=== PATIENT | female | born 1955 ===

== ENCOUNTER 2021-04-16 15:19 | Inpatient (IN) | payer MEDICARE ==
--- NOTE | 2021-04-17 18:34 | Consultation ---
History of Present Illness - Reason for Consult Consult date: 04/17/21 Medical Management Requesting physician: SAÚL VILLALOBOS - History of Present Illness 72 YO Female with Vascular Dementia with Behavioral Disturbance, Cerebral Atherosclerosis, GERD, OA, LDD, Chronic Pain Syndrome, Depression, Hypothyroidism admitted to [facility] for psychiatric stabilization. Consult placed by Dr. Villalobos for medical management. Medications and Allergies Allergies Allergy/AdvReac Type Severity Reaction Status Date / Time cefuroxime Allergy Unknown Verified 04/17/21 17:24 Sulfa (Sulfonamide Allergy Unknown Unverified 04/16/21 15:21 Antibiotics) Home Medications Medication Instructions Recorded Confirmed Last Taken Type Escitalopram Oxalate [Lexapro] 20 mg PO DAILY 04/17/21 04/17/21 Unknown History Furosemide [Lasix] 20 mg PO QDAY 04/17/21 04/17/21 Unknown History LORazepam [Ativan] 1 mg PO BID PRN 04/17/21 04/17/21 Unknown History Levothyroxine Sodium [Synthroid] 137 mcg PO DAILY 04/17/21 04/17/21 Unknown History OLANzapine ZYDIS [ZyPREXA Zydis] 5 mg SL DAILY 04/17/21 04/17/21 Unknown History Oxymorphone HCl [Oxymorphone HCl 10 mg PO 4XD PRN MDD 4 X DAILY 04/17/21 04/17/21 Unknown History ER] cephALEXin [Keflex] 500 mg PO TID 04/17/21 04/17/21 Unknown History Active Meds: Active Medications Melatonin (Melatonin 5 Mg Tab) 5 mg PO QHS PRN PRN Reason: Sleep Trazodone HCl (Trazodone 50 Mg Tab) 50 mg PO QHS SHEA
[2021-04-17] MEDS ORDERED: oxyCODONE /ACETAMINOPHEN 5-325MG TAB PO SCH (19:00)
[2021-04-17] MEDS: traZODone 50 MG TAB PO SCH ×2 (19:58→21:04)
[2021-04-17] MEDS: oxyCODONE /ACETAMINOPHEN 5-325MG TAB PO SCH (20:07)
[2021-04-17] MEDS: MELATONIN 5 MG TAB PO PRN (21:54)
[2021-04-18] MEDS ORDERED: traMADol 50 MG TAB PO ONE (01:54)
[2021-04-18] MEDS: LEVOTHYROXINE 25 MCG TAB PO SCH (05:25)
[2021-04-18] MEDS: LEVOTHYROXINE 112 MCG TAB PO SCH (05:25)
--- NOTE | 2021-04-18 09:21 | History and Physical Report ---
GP History & Physical - History of Present Illness Date of admission: 04/17/21 Date of Examination: 04/18/21 Reason for Admission: Failure of Outpatient Treatment, Severe anxiety/depression History of Present Illness: Per Admit Note: Patient is being admitted to the [facility] for agitation, matti, psychosis, verbal agitation and misuse of funds in the amount of $9500. Patient is unable to care for herself r/t manic behavior. Jennifer Rosario is a 72y/o female patient who was seen today. The patient is a/o x 3. She is pleasant and polite. She is calm and cooperative. She is hyperverbal. The patient says her family had her admitted because she "had her house remodeled." She says "I've been wanting my house remodeled for a long time and he was the cheapest." She says "they don't care about me and they don't know what I got going on." She denies SI/HI. She also denies hallucinations. The patient says she has a history of bipolar and depression. She says she takes lexapro. She could not remember any of her other meds. Psychiatric History Diagnoses: disorder and bipolar Suicide attempts or Self-harm behavior: Denies Prior psychiatric hospitalizations: yes Substance Abuse history: Nicotine Previous psychiatric medications tried: Lexapro Outpatient treatment: Yes PAST MEDICAL HISTORY: None reported Family Psychiatric History: None reported or documented SOCIAL HISTORY Marital Status: single Living Arrangements: Alone Employment Status: Disabled Access to guns/weapons: Denies Education: History of Abuse: none reported Legal History: none reported REVIEW OF SYSTEMS Constitutional: Negative for weight loss ENT: Negative for stridor Respiratory: Negative for cough or hemoptysis All other systems reviewed and are negative MENTAL STATUS EXAMINATION General Appearance and Behavior: Age appropriate, good hygiene, wearing appropriate clothes, cooperative, polite Cooperation: Participating/engaged Psychomotor Behavior: normal Mood: upset Affect and affective range: congruent with stated mood Thought Process: goal directed Thought Content: depression, SI, hallucinations Speech: Normal volume, Regular rate and rhythm Suicidal Ideation: Denies Homicidal Ideation: Denies Hallucinations: Denies Delusions: None elicited Impulse Control: impaired Insight and Judgment: limited insight and judgment, Memory: normal Attention: Normal Orientation: Alert, oriented Assessment and Plan (1) Bipolar Current Visit: Yes Status: Acute Treatment Plan Treatment Plan Patient admitted for inpatient psychiatric evaluation, medication adjustment and close monitoring The patient's behavior, mood, sleep and appetite will be closely monitored. Patient enrolled in individual and group therapeutic sessions and encouraged to attend. Patient provided with a safe and structured environment. Patient's physical health needs will be addressed by the Hospitalist. Hospitalist Consulted Labs including CBC, CMP, Lipid profile and Hemoglobin A1C levels ordered for baseline reference Social Assessment will be completed and the Clipping Marker will work with patient and family to ensure a suitable and safe disposition Medication adjustment will be made as clinically indicated Continue home medications Usual Wellness [facility]/Preservation: - Start Trazodone 50 mg po QHS & 50 mg po QHS PRN between 10 PM & 2 AM for insomnia - Start Melatonin 5 mg po QHS to promote circadian rhythm The patient agreed on the treatment plan, understood the risk, benefit, alternative treatment, potential consequence of no treatment, and gave informed consent. Estimated days: 4 Post hospital care: primary care provider, psychiatric provider Case staffed with Dr. Mckeon Legal Status: Voluntary Reaction to Hospitalization: Accepting Medications and Allergies Allergies Allergy/AdvReac Type Severity Reaction Status Date / Time cefuroxime Allergy Unknown Verified 04/17/21 17:24 Sulfa (Sulfonamide Allergy Unknown Unverified 04/16/21 15:21 Antibiotics) Home Medications Medication Instructions Recorded Confirmed Last Taken Type Escitalopram Oxalate [Lexapro] 20 mg PO DAILY 04/17/21 04/17/21 Unknown History Furosemide [Lasix] 20 mg PO QDAY 04/17/21 04/17/21 Unknown History LORazepam [Ativan] 1 mg PO BID PRN 04/17/21 04/17/21 Unknown History Levothyroxine Sodium [Synthroid] 137 mcg PO DAILY 04/17/21 04/17/21 Unknown History OLANzapine ZYDIS [ZyPREXA Zydis] 5 mg SL DAILY 04/17/21 04/17/21 Unknown History Oxymorphone HCl [Oxymorphone HCl 10 mg PO 4XD PRN MDD 4 X DAILY 04/17/21 04/17/21 Unknown History ER] cephALEXin [Keflex] 500 mg PO TID 04/17/21 04/17/21 Unknown History Active Meds: Active Medications Furosemide (Furosemide 20 Mg Tab) 20 mg PO QDAY SHEA Levothyroxine Sodium (Levothyroxine 112 Mcg Tab) 112 mcg PO DAILY@0600 [facility] Last Admin: 04/18/21 05:25 Dose: 112 mcg Documented by: Levothyroxine Sodium (Levothyroxine 25 Mcg Tab) 25 mcg PO DAILY@0600 [facility] Last Admin: 04/18/21 05:25 Dose: 25 mcg Documented by: Melatonin (Melatonin 5 Mg Tab) 5 mg PO QHS PRN PRN Reason: Sleep Last Admin: 04/17/21 21:54 Dose: 5 mg Documented by: Oxycodone/Acetaminophen (Oxycodone /Acetaminophen 5-325mg Tab) 1 tab PO BID [facility] Last Admin: 04/17/21 20:07 Dose: 1 tab Documented by: Trazodone HCl (Trazodone 50 Mg Tab) 50 mg PO QHS [facility] Last Admin: 04/17/21 21:04 Dose: 50 mg Documented by: Results - Results Labs/Vitals: Laboratory Last Values POC Glucose 96 mg/dL (70-105) 04/17/21 16:41 Last Vital Signs Temp 99.1 F 04/17/21 22:00 Pulse 87 04/17/21 22:00 Resp 18 04/18/21 02:04 BP 140/64 04/17/21 22:00 Pulse Ox 100 04/17/21 22:00 Physical Examination - Constitutional Vitals: Vital Signs Temp Pulse Resp BP Pulse Ox 99.1 F 87 18 140/64 100 04/17/21 22:00 04/17/21 22:00 04/18/21 02:04 04/17/21 22:00 04/17/21 22:00 Temperature -Last 24 Hours Temperature 99.1 F Temperature 99.1 F Mental Status Exam - Vital signs Last Vital Signs Temp 99.1 F 04/17/21 22:00 Pulse 87 04/17/21 22:00 Resp 18 04/18/21 02:04 BP 140/64 04/17/21 22:00 Pulse Ox 100 04/17/21 22:00 Physician Certification - Certification Statement Physician Certification Statement: This is an acknowledgement statement that JENNIFER ROSARIO is a 72 year old F who requires inpatient psychiatric admission for treatment which could reasonably be expected to improve the patient's condition for Estimated period of time patient will need to remain in the hospital: [ ] Plan for post-hospital care: [ ]
[2021-04-18] MEDS ORDERED: LEVOTHYROXINE SODIUM 137 MCG PO SCH (10:00)
[2021-04-18] MEDS ORDERED: NON-FORMULARY EACH (Escitalopram Oxalate [Lexapro] 20 MG Tablet) PO SCH (10:00)
[2021-04-18] MEDS: FUROSEMIDE 20 MG TAB PO SCH (10:23)
[2021-04-18] MEDS: OLANzapine ZYDIS 5 MG TAB PO SCH (10:23)
[2021-04-18] MEDS: oxyCODONE /ACETAMINOPHEN 5-325MG TAB PO SCH ×2 (10:28→21:54)
[2021-04-18 11:46] LABS: Basophils % (Auto) 0.2 % (0.0-1.8); Eosinophils % (Auto) 0.3 % (0.0-4.3); Hematocrit 33.6 % (30.3-42.9); Hemoglobin 11.5 gm/dl (10.1-14.3); Lymphocytes # (Auto) 2.1 K/mm3 (1.2-5.4); Lymphocytes % (Auto) 34.3 % (13.4-35.0); Mean Corpuscular HGB Conc 34 % (30-34); Mean Corpuscular Volume 108 fl (79-97); Monocytes # (Auto) 0.5 K/mm3 (0.0-0.8); Monocytes % (Auto) 7.9 % (0.0-7.3); Platelet Count 128 K/mm3 (140-440); Red Blood Count 3.12 M/mm3 (3.65-5.03); Red Cell Distribution Width 15.6 % (13.2-15.2)
[2021-04-18 12:26] LABS: Albumin 3.2 g/dL (3.9-5); Chol/HDL Ratio 3.06 %
[2021-04-18] MEDS: ESCITALOPRAM 10 MG TAB PO SCH (13:47)
[2021-04-18] MEDS: cephALEXin 500 MG CAP PO SCH ×2 (13:47→21:54)
[2021-04-18] MEDS: traZODone 50 MG TAB PO SCH (21:55)
[2021-04-19] MEDS: LEVOTHYROXINE 25 MCG TAB PO SCH (05:27)
[2021-04-19] MEDS: LEVOTHYROXINE 112 MCG TAB PO SCH (05:27)
--- NOTE | 2021-04-19 08:39 | Progress Note ---
Subjective Date of service: 04/19/21 Subjective Comment: 04/19/2021: The patient was seen resting in bed, she reports doing well. The patient is talkative. When asked about mood she states " fine , I'm as clear as a red bird." She complained of left leg pain. Patient talks about her home reconstruction. She denies depression stating " I reconciled with my daughter and I am not depressed anymore." The patient reports sleep as fair and appetite as good. She denies any current suicidal/homicidal ideation and denies hallucinations. per nurse, the patient had a quiet night. No changes made today. REVIEW OF SYSTEMS Constitutional: Negative for weight loss ENT: Negative for stridor Respiratory: Negative for cough or hemoptysis All other systems reviewed and are negative MENTAL STATUS EXAMINATION General Appearance and Behavior: Age appropriate, good hygiene, wearing appropriate clothes, cooperative, polite Cooperation: Participating/engaged Psychomotor Behavior: normal Mood: "fine" Affect and affective range: congruent with stated mood Thought Process: goal directed Thought Content: Not suicidal Speech: Normal volume, hyperverbal Suicidal Ideation: Denies Homicidal Ideation: Denies Hallucinations: Denies Delusions: None elicited Impulse Control: impaired Insight and Judgment: limited insight and judgment, Memory: normal Attention: Normal Orientation: Alert, oriented Assessment and Plan (1) Bipolar Martha Current Visit: Yes Status: Acute Treatment Plan Treatment Plan Patient admitted for inpatient psychiatric evaluation, medication adjustment and close monitoring The patient's behavior, mood, sleep and appetite will be closely monitored. Patient enrolled in individual and group therapeutic sessions and encouraged to attend. Patient provided with a safe and structured environment. Patient's physical health needs will be addressed by the Hospitalist. Hospitalist Consulted Labs including CBC, CMP, Lipid profile and Hemoglobin A1C levels ordered for baseline reference Social Assessment will be completed and the [employer] Certified Powerplant Mechanic will work with patient and family to ensure a suitable and safe disposition Medication adjustment will be made as clinically indicated Continue home medications Usual Wellness [facility]/Preservation: - Start Trazodone 50 mg po QHS & 50 mg po QHS PRN between 10 PM & 2 AM for insomnia - Start Melatonin 5 mg po QHS to promote circadian rhythm The patient agreed on the treatment plan, understood the risk, benefit, alternative treatment, potential consequence of no treatment, and gave informed consent. Estimated days: 4 Post hospital care: primary care provider, psychiatric provider Case staffed with Dr. Mckeon Legal Status: Voluntary Reaction to Hospitalization: Accepting Medications and Allergies Medications and Allergies Allergies Allergy/AdvReac Type Severity Reaction Status Date / Time cefuroxime Allergy Unknown Verified 04/17/21 17:24 Sulfa (Sulfonamide Allergy Itching Verified 04/18/21 18:49 Antibiotics) Home Medications Medication Instructions Recorded Confirmed Last Taken Type Escitalopram Oxalate [Lexapro] 20 mg PO DAILY 04/17/21 04/17/21 Unknown History Furosemide [Lasix] 20 mg PO QDAY 04/17/21 04/17/21 Unknown History LORazepam [Ativan] 1 mg PO BID PRN 04/17/21 04/17/21 Unknown History Levothyroxine Sodium [Synthroid] 137 mcg PO DAILY 04/17/21 04/17/21 Unknown History OLANzapine ZYDIS [ZyPREXA Zydis] 5 mg SL DAILY 04/17/21 04/17/21 Unknown History Oxymorphone HCl [Oxymorphone HCl 10 mg PO 4XD PRN MDD 4 X DAILY 04/17/21 04/17/21 Unknown History ER] cephALEXin [Keflex] 500 mg PO TID 04/17/21 04/17/21 Unknown History Active Meds: Active Medications Cephalexin (Cephalexin 500 Mg Cap) 500 mg PO TID [facility]; Protocol Stop: 04/23/21 20:01 Last Admin: 04/18/21 21:54 Dose: 500 mg Documented by: Escitalopram Oxalate (Escitalopram 10 Mg Tab) 20 mg PO DAILY [facility] Last Admin: 04/18/21 13:47 Dose: 20 mg Documented by: Furosemide (Furosemide 20 Mg Tab) 20 mg PO QDAY [facility] Last Admin: 04/18/21 10:23 Dose: 20 mg Documented by: Levothyroxine Sodium (Levothyroxine 112 Mcg Tab) 112 mcg PO DAILY@0600 [facility] Last Admin: 04/19/21 05:27 Dose: 112 mcg Documented by: Levothyroxine Sodium (Levothyroxine 25 Mcg Tab) 25 mcg PO DAILY@0600 [facility] Last Admin: 04/19/21 05:27 Dose: 25 mcg Documented by: Lorazepam (Lorazepam 1 Mg Tab) 1 mg PO BID PRN PRN Reason: Agitation Melatonin (Melatonin 5 Mg Tab) 5 mg PO QHS PRN PRN Reason: Sleep Last Admin: 04/17/21 21:54 Dose: 5 mg Documented by: Olanzapine (Olanzapine Zydis 5 Mg Tab) 5 mg PO DAILY [facility] Last Admin: 04/18/21 10:23 Dose: 5 mg Documented by: Oxycodone/Acetaminophen (Oxycodone /Acetaminophen 5-325mg Tab) 1 tab PO BID [facility] Last Admin: 04/18/21 21:54 Dose: 1 tab Documented by: Trazodone HCl (Trazodone 50 Mg Tab) 50 mg PO QHS [facility] Last Admin: 04/18/21 21:55 Dose: 50 mg Documented by: Results - Results Labs/Vitals: Laboratory Last Values WBC 6.1 K/mm3 (4.5-11.0) 04/18/21 11:05 RBC 3.12 M/mm3 (3.65-5.03) L 04/18/21 11:05 Hgb 11.5 gm/dl (10.1-14.3) 04/18/21 11:05 Hct 33.6 % (30.3-42.9) 04/18/21 11:05 MCV 108 fl (79-97) H 04/18/21 11:05 MCH 37 pg (28-32) H 04/18/21 11:05 MCHC 34 % (30-34) 04/18/21 11:05 RDW 15.6 % (13.2-15.2) H 04/18/21 11:05 Plt Count 128 K/mm3 (140-440) L 04/18/21 11:05 Lymph % (Auto) 34.3 % (13.4-35.0) 04/18/21 11:05 Bee % (Auto) 7.9 % (0.0-7.3) H 04/18/21 11:05 Eos % (Auto) 0.3 % (0.0-4.3) 04/18/21 11:05 Baso % (Auto) 0.2 % (0.0-1.8) 04/18/21 11:05 Lymph # (Auto) 2.1 K/mm3 (1.2-5.4) 04/18/21 11:05 Bee # (Auto) 0.5 K/mm3 (0.0-0.8) 04/18/21 11:05 Eos # (Auto) 0.0 K/mm3 (0.0-0.4) 04/18/21 11:05 Baso # (Auto) 0.0 K/mm3 (0.0-0.1) 04/18/21 11:05 Seg Neutrophils % 57.3 % (40.0-70.0) 04/18/21 11:05 Seg Neutrophils # 3.5 K/mm3 (1.8-7.7) 04/18/21 11:05 Sodium 142 mmol/L (137-145) 04/18/21 11:05 Potassium 4.5 mmol/L (3.6-5.0) 04/18/21 11:05 Chloride 105.2 mmol/L (98-107) 04/18/21 11:05 Carbon Dioxide 25 mmol/L (22-30) 04/18/21 11:05 Anion Gap 16 mmol/L 04/18/21 11:05 BUN 13 mg/dL (7-17) 04/18/21 11:05 Creatinine 1.1 mg/dL (0.6-1.2) 04/18/21 11:05 Estimated GFR 49 ml/min 04/18/21 11:05 BUN/Creatinine Ratio 12 % 04/18/21 11:05 Glucose 85 mg/dL (65-100) 04/18/21 11:05 POC Glucose 96 mg/dL (70-105) 04/17/21 16:41 Hemoglobin A1c 5.1 % (4-6) 04/18/21 11:05 Calcium 9.0 mg/dL (8.4-10.2) 04/18/21 11:05 Total Bilirubin 0.50 mg/dL (0.1-1.2) 04/18/21 11:05 AST 38 units/L (5-40) 04/18/21 11:05 ALT 25 units/L (7-56) 04/18/21 11:05 Alkaline Phosphatase 74 units/L (35-129) 04/18/21 11:05 Total Protein 6.7 g/dL (6.3-8.2) 04/18/21 11:05 Albumin 3.2 g/dL (3.9-5) L 04/18/21 11:05 Albumin/Globulin Ratio 0.9 % 04/18/21 11:05 Triglycerides 141 mg/dL (2-149) 04/18/21 11:05 Cholesterol 132 mg/dL (50-199) 04/18/21 11:05 LDL Cholesterol Direct 68 mg/dL (50-130) 04/18/21 11:05 HDL Cholesterol 43 mg/dL (40-59) 04/18/21 11:05 Cholesterol/HDL Ratio 3.06 % 04/18/21 11:05 TSH 19.950 mlU/mL (0.270-4.200) H 04/18/21 11:05 Last Vital Signs Temp 98.5 F 04/18/21 22:00 Pulse 70 04/18/21 22:00 Resp 18 04/18/21 22:00 BP 124/56 04/18/21 22:00 Pulse Ox 97 04/18/21 19:16
[2021-04-19] MEDS: ESCITALOPRAM 10 MG TAB PO SCH (10:09)
[2021-04-19] MEDS: FUROSEMIDE 20 MG TAB PO SCH (10:10)
[2021-04-19] MEDS: cephALEXin 500 MG CAP PO SCH ×3 (10:10→20:40)
[2021-04-19] MEDS: oxyCODONE /ACETAMINOPHEN 5-325MG TAB PO SCH ×2 (10:10→21:40)
[2021-04-19] MEDS: OLANzapine ZYDIS 5 MG TAB PO SCH (13:52)
[2021-04-19] MEDS: DIVALPROEX DR 250 MG TAB PO SCH ×2 (14:04→21:39)
[2021-04-19] MEDS: MELATONIN 5 MG TAB PO PRN (20:42)
[2021-04-19] MEDS: traZODone 50 MG TAB PO SCH (21:40)
[2021-04-20] MEDS: LEVOTHYROXINE 25 MCG TAB PO SCH (05:53)
[2021-04-20] MEDS: LEVOTHYROXINE 112 MCG TAB PO SCH (05:53)
--- NOTE | 2021-04-20 07:46 | Progress Note ---
Subjective Date of service: 04/20/21 Subjective Comment: 04/19/2021: The patient was seen resting in bed, she reports doing well. The patient is talkative. When asked about mood she states " fine , I'm as clear as a red bird." She complained of left leg pain. Patient talks about her home reconstruction. She denies depression stating " I reconciled with my daughter and I am not depressed anymore." The patient reports sleep as fair and appetite as good. She denies any current suicidal/homicidal ideation and denies hallucinations. per nurse, the patient had a quiet night. No changes made today. 04/20/2021: The patient was seen sitting in bed, she reports mood as " fine." The patient is focused on discharge, she states she has a doctor appointment on 04/23- for her injections. The patient is calm. The patient reports sleep and appetite as good. She denies any current suicidal/homicidal ideation and denies hallucinations. Per nurse,"She is hyperverbal and constantly requesting things of staff. Her mood presents as labile. She denies si/hi/ah/vh. Her appetite is good. She is medication compliant." No changes made today. REVIEW OF SYSTEMS Constitutional: Negative for weight loss ENT: Negative for stridor Respiratory: Negative for cough or hemoptysis All other systems reviewed and are negative MENTAL STATUS EXAMINATION General Appearance and Behavior: Age appropriate, good hygiene, wearing appropriate clothes, cooperative, polite Cooperation: Participating/engaged Psychomotor Behavior: normal Mood: "fine" Affect and affective range: congruent with stated mood Thought Process: goal directed Thought Content: Not suicidal Speech: Normal volume,rate normal Suicidal Ideation: Denies Homicidal Ideation: Denies Hallucinations: Denies Delusions: None elicited Impulse Control: impaired Insight and Judgment: limited insight and judgment, Memory: normal Attention: Normal Orientation: Alert, oriented Assessment and Plan (1) Bipolar Martha Current Visit: Yes Status: Acute Treatment Plan Treatment Plan Patient admitted for inpatient psychiatric evaluation, medication adjustment an d close monitoring The patient's behavior, mood, sleep and appetite will be closely monitored. Patient enrolled in individual and group therapeutic sessions and encouraged to attend. Patient provided with a safe and structured environment. Patient's physical health needs will be addressed by the Hospitalist. Hospitalist Consulted Labs including CBC, CMP, Lipid profile and Hemoglobin A1C levels ordered for baseline reference Social Assessment will be completed and the Director Career Services will work with patient and family to ensure a suitable and safe disposition Medication adjustment will be made as clinically indicated Continue home medications Usual Wellness [facility]/Preservation: - Start Trazodone 50 mg po QHS & 50 mg po QHS PRN between 10 PM & 2 AM for i nsomnia - Start Melatonin 5 mg po QHS to promote circadian rhythm The patient agreed on the treatment plan, understood the risk, benefit, alternative treatment, potential consequence of no treatment, and gave informed consent. Estimated days: 4 Post hospital care: primary care provider, psychiatric provider Case staffed with Dr. Mckeon Legal Status: Voluntary Reaction to Hospitalization: Accepting Medications and Allergies Medications and Allergies Allergies Allergy/AdvReac Type Severity Reaction Status Date / Time cefuroxime Allergy Unknown Verified 04/17/21 17:24 Sulfa (Sulfonamide Allergy Itching Verified 04/18/21 18:49 Antibiotics) Home Medications Medication Instructions Recorded Confirmed Last Taken Type Escitalopram Oxalate [Lexapro] 20 mg PO DAILY 04/17/21 04/17/21 Unknown History Furosemide [Lasix] 20 mg PO QDAY 04/17/21 04/17/21 Unknown History LORazepam [Ativan] 1 mg PO BID PRN 04/17/21 04/17/21 Unknown History Levothyroxine Sodium [Synthroid] 137 mcg PO DAILY 04/17/21 04/17/21 Unknown Hist ory OLANzapine ZYDIS [ZyPREXA Zydis] 5 mg SL DAILY 04/17/21 04/17/21 Unknown History Oxymorphone HCl [Oxymorphone HCl 10 mg PO 4XD PRN MDD 4 X DAILY 04/17/21 04/17/21 Unknown History ER] cephALEXin [Keflex] 500 mg PO TID 04/17/21 04/17/21 Unknown History Active Meds: Active Medications Cephalexin (Cephalexin 500 Mg Cap) 500 mg PO TID [facility]; Protocol Stop: 04/23/21 20:01 Last Admin: 04/19/21 20:40 Dose: 500 mg Documented by: Divalproex Sodium (Divalproex Dr 250 Mg Tab) 250 mg PO BID [facility] Last Admin: 04/19/21 21:39 Dose: 250 mg Documented by: Escitalopram Oxalate (Escitalopram 10 Mg Tab) 20 mg PO DAILY [facility] Last Admin: 04/19/21 10:09 Dose: 20 mg Documented by: Furosemide (Furosemide 20 Mg Tab) 20 mg PO QDAY [facility] Last Admin: 04/19/21 10:10 Dose: 20 mg Documented by: Levothyroxine Sodium (Levothyroxine 112 Mcg Tab) 112 mcg PO DAILY@0600 [facility] Last Admin: 04/20/21 05:53 Dose: 112 mcg Documented by: Levothyroxine Sodium (Levothyroxine 25 Mcg Tab) 25 mcg PO DAILY@0600 [facility] Last Admin: 04/20/21 05:53 Dose: 25 mcg Documented by: Lorazepam (Lorazepam 1 Mg Tab) 1 mg PO BID PRN PRN Reason: Agitation Melatonin (Melatonin 5 Mg Tab) 5 mg PO QHS PRN PRN Reason: Sleep Last Admin: 04/19/21 20:42 Dose: 5 mg Documented by: Olanzapine (Olanzapine 10 Mg Tab) 10 mg PO QDAY [facility] Last Admin: 04/19/21 14:04 Dose: 10 mg Documented by: Oxycodone/Acetaminophen (Oxycodone /Acetaminophen 5-325mg Tab) 1 tab PO BID [facility] Last Admin: 04/19/21 21:40 Dose: 1 tab Documented by: Trazodone HCl (Trazodone 50 Mg Tab) 50 mg PO QHS [facility] Last Admin: 04/19/21 21:40 Dose: 50 mg Documented by: Results - Results Labs/Vitals: Laboratory Last Values WBC 6.1 K/mm3 (4.5-11.0) 04/18/21 11:05 RBC 3.12 M/mm3 (3.65-5.03) L 04/18/21 11:05 Hgb 11.5 gm/dl (10.1-14.3) 04/18/21 11:05 Hct 33.6 % (30.3-42.9) 04/18/21 11:05 MCV 108 fl (79-97) H 04/18/21 11:05 MCH 37 pg (28-32) H 04/18/21 11:05 MCHC 34 % (30-34) 04/18/21 11:05 RDW 15.6 % (13.2-15.2) H 04/18/21 11:05 Plt Count 128 K/mm3 (140-440) L 04/18/21 11:05 Lymph % (Auto) 34.3 % (13.4-35.0) 04/18/21 11:05 Burt % (Auto) 7.9 % (0.0-7.3) H 04/18/21 11:05 Eos % (Auto) 0.3 % (0.0-4.3) 04/18/21 11:05 Baso % (Auto) 0.2 % (0.0-1.8) 04/18/21 11:05 Lymph # (Auto) 2.1 K/mm3 (1.2-5.4) 04/18/21 11:05 Burt # (Auto) 0.5 K/mm3 (0.0-0.8) 04/18/21 11:05 Eos # (Auto) 0.0 K/mm3 (0.0-0.4) 04/18/21 11:05 Baso # (Auto) 0.0 K/mm3 (0.0-0.1) 04/18/21 11:05 Seg Neutrophils % 57.3 % (40.0-70.0) 04/18/21 11:05 Seg Neutrophils # 3.5 K/mm3 (1.8-7.7) 04/18/21 11:05 Sodium 142 mmol/L (137-145) 04/18/21 11:05 Potassium 4.5 mmol/L (3.6-5.0) 04/18/21 11:05 Chloride 105.2 mmol/L (98-107) 04/18/21 11:05 Carbon Dioxide 25 mmol/L (22-30) 04/18/21 11:05 Anion Gap 16 mmol/L 04/18/21 11:05 BUN 13 mg/dL (7-17) 04/18/21 11:05 Creatinine 1.1 mg/dL (0.6-1.2) 04/18/21 11:05 Estimated GFR 49 ml/min 04/18/21 11:05 BUN/Creatinine Ratio 12 % 04/18/21 11:05 Glucose 85 mg/dL (65-100) 04/18/21 11:05 POC Glucose 96 mg/dL (70-105) 04/17/21 16:41 Hemoglobin A1c 5.1 % (4-6) 04/18/21 11:05 Calcium 9.0 mg/dL (8.4-10.2) 04/18/21 11:05 Total Bilirubin 0.50 mg/dL (0.1-1.2) 04/18/21 11:05 AST 38 units/L (5-40) 04/18/21 11:05 ALT 25 units/L (7-56) 04/18/21 11:05 Alkaline Phosphatase 74 units/L (35-129) 04/18/21 11:05 Total Protein 6.7 g/dL (6.3-8.2) 04/18/21 11:05 Albumin 3.2 g/dL (3.9-5) L 04/18/21 11:05 Albumin/Globulin Ratio 0.9 % 04/18/21 11:05 Triglycerides 141 mg/dL (2-149) 04/18/21 11:05 Cholesterol 132 mg/dL (50-199) 04/18/21 11:05 LDL Cholesterol Direct 68 mg/dL (50-130) 04/18/21 11:05 HDL Cholesterol 43 mg/dL (40-59) 04/18/21 11:05 Cholesterol/HDL Ratio 3.06 % 04/18/21 11:05 TSH 19.950 mlU/mL (0.270-4.200) H 04/18/21 11:05 Last Vital Signs Temp 99.2 F 04/19/21 22:00 Pulse 76 04/19/21 22:00 Resp 18 04/19/21 22:00 BP 132/68 04/19/21 22:00 Pulse Ox 97 04/19/21 22:00
[2021-04-20] MEDS: cephALEXin 500 MG CAP PO SCH ×3 (08:45→21:04)
[2021-04-20] MEDS: FUROSEMIDE 20 MG TAB PO SCH (09:16)
[2021-04-20] MEDS: ESCITALOPRAM 10 MG TAB PO SCH (09:16)
[2021-04-20] MEDS: oxyCODONE /ACETAMINOPHEN 5-325MG TAB PO SCH ×2 (09:16→21:04)
[2021-04-20] MEDS: DIVALPROEX DR 250 MG TAB PO SCH ×2 (09:16→21:05)
[2021-04-20] MEDS: MELATONIN 5 MG TAB PO PRN (21:05)
[2021-04-20] MEDS: traZODone 50 MG TAB PO SCH (21:05)
[2021-04-21] MEDS: LORazepam 1 MG TAB PO PRN ×2 (04:27→23:41)
[2021-04-21] MEDS: LEVOTHYROXINE 112 MCG TAB PO SCH (06:22)
[2021-04-21] MEDS: LEVOTHYROXINE 25 MCG TAB PO SCH (06:23)
--- NOTE | 2021-04-21 07:32 | Progress Note ---
Subjective Date of service: 04/21/21 Subjective Comment: 04/19/2021: The patient was seen resting in bed, she reports doing well. The patient is talkative. When asked about mood she states " fine , I'm as clear as a red bird." She complained of left leg pain. Patient talks about her home reconstruction. She denies depression stating " I reconciled with my daughter and I am not depressed anymore." The patient reports sleep as fair and appetite as good. She denies any current suicidal/homicidal ideation and denies bernard lucinations. per nurse, the patient had a quiet night. No changes made today. 04/20/2021: The patient was seen sitting in bed, she reports mood as " fine." The patient is focused on discharge, she states she has a doctor appointment on 04/23- for her injections. The patient is calm. The patient reports sleep and appetite as good. She denies any current suicidal/homicidal ideation and denies hallucinations. Per nurse,"She is hyperverbal and constantly requesting things of staff. Her mood presents as labile. She denies si/hi/ah/vh. Her appetite is good. She is medication compliant." No changes made today. 04/21/2021: The patient was seen resting in bed, she reports doing well. The patient is focused on discharge. She reports sleep as fair and appetite as good. She denies any current suicidal/homicidal ideation and denies hallucinations. Per nurse, the patient had about four hours of sleep last night. Change Zyprexa 10 mg po QHS. REVIEW OF SYSTEMS Constitutional: Negative for weight loss ENT: Negative for stridor Respiratory: Negative for cough or hemoptysis All other systems reviewed and are negative MENTAL STATUS EXAMINATION General Appearance and Behavior: Age appropriate, good hygiene, wearing appropriate clothes, cooperative, polite Cooperation: Participating/engaged Psychomotor Behavior: normal Mood: "Ok" Affect and affective range: congruent with stated mood Thought Process: goal directed Thought Content: Not suicidal Speech: Normal volume,rate normal Suicidal Ideation: Denies Homicidal Ideation: Denies Hallucinations: Denies Delusions: None elicited Impulse Control: Questionable Insight and Judgment: limited insight and judgment, Memory: normal Attention: Normal Orientation: Alert, oriented Assessment and Plan (1) Bipolar Martha Current Visit: Yes Status: Acute Treatment Plan Treatment Plan Patient admitted for inpatient psychiatric evaluation, medication adjustment and close monitoring The patient's behavior, mood, sleep and appetite will be closely monitored. Patient enrolled in individual and group therapeutic sessions and encouraged to attend. Patient provided with a safe and structured environment. Patient's physical health needs will be addressed by the Hospitalist. Hospitalist Consulted Labs including CBC, CMP, Lipid profile and Hemoglobin A1C levels ordered for baseline reference Social Assessment will be completed and the Clinical Business Manager will work with patient and family to ensure a suitable and safe disposition Medication adjustment will be made as clinically indicated Continue home medications Changed Zyprexa 10mg po QHS Usual Wellness Rastafarian/Preservation: - Start Trazodone 50 mg po QHS & 50 mg po QHS PRN between 10 PM & 2 AM for insomnia - Start Melatonin 5 mg po QHS to promote circadian rhythm The patient agreed on the treatment plan, understood the risk, benefit, alternative treatment, potential consequence of no treatment, and gave informed consent. Estimated days: 4 Post hospital care: primary care provider, psychiatric provider Case staffed with Dr. Mckeon Legal Status: Voluntary Reaction to Hospitalization: Accepting Medications and Allergies Medications and Allergies Allergies Allergy/AdvReac Type Severity Reaction Status Date / Time cefuroxime Allergy Unknown Verified 04/17/21 17:24 Sulfa (Sulfonamide Allergy Itching Verified 04/18/21 18:49 Antibiotics) Home Medications Medication Instructions Recorded Confirmed Last Taken Type Escitalopram Oxalate [Lexapro] 20 mg PO DAILY 04/17/21 04/17/21 Unknown History Furosemide [Lasix] 20 mg PO QDAY 04/17/21 04/17/21 Unknown History LORazepam [Ativan] 1 mg PO BID PRN 04/17/21 04/17/21 Unknown History Levothyroxine Sodium [Synthroid] 137 mcg PO DAILY 04/17/21 04/17/21 Unknown History OLANzapine ZYDIS [ZyPREXA Zydis] 5 mg SL DAILY 04/17/21 04/17/21 Unknown History Oxymorphone HCl [Oxymorphone HCl 10 mg PO 4XD PRN MDD 4 X DAILY 04/17/21 04/17/21 Unknown History ER] cephALEXin [Keflex] 500 mg PO TID 04/17/21 04/17/21 Unknown History Active Meds: Active Medications Cephalexin (Cephalexin 500 Mg Cap) 500 mg PO TID [facility]; Protocol Stop: 04/23/21 20:01 Last Admin: 04/20/21 21:04 Dose: 500 mg Documented by: Divalproex Sodium (Divalproex Dr 250 Mg Tab) 250 mg PO BID [facility] Last Admin: 04/20/21 21:05 Dose: 250 mg Documented by: Escitalopram Oxalate (Escitalopram 10 Mg Tab) 20 mg PO DAILY [facility] Last Admin: 04/20/21 09:16 Dose: 20 mg Documented by: Furosemide (Furosemide 20 Mg Tab) 20 mg PO QDAY [facility] Last Admin: 04/20/21 09:16 Dose: 20 mg Documented by: Levothyroxine Sodium (Levothyroxine 112 Mcg Tab) 112 mcg PO DAILY@0600 [facility] Last Admin: 04/21/21 06:22 Dose: 112 mcg Documented by: Levothyroxine Sodium (Levothyroxine 25 Mcg Tab) 25 mcg PO DAILY@0600 [facility] Last Admin: 04/21/21 06:23 Dose: 25 mcg Documented by: Lorazepam (Lorazepam 1 Mg Tab) 1 mg PO BID PRN PRN Reason: Agitation Last Admin: 04/21/21 04:27 Dose: 1 mg Documented by: Melatonin (Melatonin 5 Mg Tab) 5 mg PO QHS PRN PRN Reason: Sleep Last Admin: 04/20/21 21:05 Dose: 5 mg Documented by: Olanzapine (Olanzapine 10 Mg Tab) 10 mg PO QDAY [facility] Last Admin: 04/20/21 09:16 Dose: 10 mg Documented by: Oxycodone/Acetaminophen (Oxycodone /Acetaminophen 5-325mg Tab) 1 tab PO BID [facility] Last Admin: 04/20/21 21:04 Dose: 1 tab Documented by: Trazodone HCl (Trazodone 50 Mg Tab) 50 mg PO QHS [facility] Last Admin: 04/20/21 21:05 Dose: 50 mg Documented by: Results - Results Labs/Vitals: Laboratory Last Values WBC 6.1 K/mm3 (4.5-11.0) 04/18/21 11:05 RBC 3.12 M/mm3 (3.65-5.03) L 04/18/21 11:05 Hgb 11.5 gm/dl (10.1-14.3) 04/18/21 11:05 Hct 33.6 % (30.3-42.9) 04/18/21 11:05 MCV 108 fl (79-97) H 04/18/21 11:05 MCH 37 pg (28-32) H 04/18/21 11:05 MCHC 34 % (30-34) 04/18/21 11:05 RDW 15.6 % (13.2-15.2) H 04/18/21 11:05 Plt Count 128 K/mm3 (140-440) L 04/18/21 11:05 Lymph % (Auto) 34.3 % (13.4-35.0) 04/18/21 11:05 [place] % (Auto) 7.9 % (0.0-7.3) H 04/18/21 11:05 Eos % (Auto) 0.3 % (0.0-4.3) 04/18/21 11:05 Baso % (Auto) 0.2 % (0.0-1.8) 04/18/21 11:05 Lymph # (Auto) 2.1 K/mm3 (1.2-5.4) 04/18/21 11:05 [place] # (Auto) 0.5 K/mm3 (0.0-0.8) 04/18/21 11:05 Eos # (Auto) 0.0 K/mm3 (0.0-0.4) 04/18/21 11:05 Baso # (Auto) 0.0 K/mm3 (0.0-0.1) 04/18/21 11:05 Seg Neutrophils % 57.3 % (40.0-70.0) 04/18/21 11:05 Seg Neutrophils # 3.5 K/mm3 (1.8-7.7) 04/18/21 11:05 Sodium 142 mmol/L (137-145) 04/18/21 11:05 Potassium 4.5 mmol/L (3.6-5.0) 04/18/21 11:05 Chloride 105.2 mmol/L (98-107) 04/18/21 11:05 Carbon Dioxide 25 mmol/L (22-30) 04/18/21 11:05 Anion Gap 16 mmol/L 04/18/21 11:05 BUN 13 mg/dL (7-17) 04/18/21 11:05 Creatinine 1.1 mg/dL (0.6-1.2) 04/18/21 11:05 Estimated GFR 49 ml/min 04/18/21 11:05 BUN/Creatinine Ratio 12 % 04/18/21 11:05 Glucose 85 mg/dL (65-100) 04/18/21 11:05 POC Glucose 96 mg/dL (70-105) 04/17/21 16:41 Hemoglobin A1c 5.1 % (4-6) 04/18/21 11:05 Calcium 9.0 mg/dL (8.4-10.2) 04/18/21 11:05 Total Bilirubin 0.50 mg/dL (0.1-1.2) 04/18/21 11:05 AST 38 units/L (5-40) 04/18/21 11:05 ALT 25 units/L (7-56) 04/18/21 11:05 Alkaline Phosphatase 74 units/L (35-129) 04/18/21 11:05 Total Protein 6.7 g/dL (6.3-8.2) 04/18/21 11:05 Albumin 3.2 g/dL (3.9-5) L 04/18/21 11:05 Albumin/Globulin Ratio 0.9 % 04/18/21 11:05 Triglycerides 141 mg/dL (2-149) 04/18/21 11:05 Cholesterol 132 mg/dL (50-199) 04/18/21 11:05 LDL Cholesterol Direct 68 mg/dL (50-130) 04/18/21 11:05 HDL Cholesterol 43 mg/dL (40-59) 04/18/21 11:05 Cholesterol/HDL Ratio 3.06 % 04/18/21 11:05 TSH 19.950 mlU/mL (0.270-4.200) H 04/18/21 11:05 Last Vital Signs Temp 98.4 F 04/20/21 20:06 Pulse 70 04/20/21 19:20 Resp 16 04/20/21 20:06 BP 129/61 04/20/21 19:20 Pulse Ox 98 04/20/21 20:06
[2021-04-21] MEDS: FUROSEMIDE 20 MG TAB PO SCH (09:02)
[2021-04-21] MEDS: DIVALPROEX DR 250 MG TAB PO SCH ×2 (09:02→21:05)
[2021-04-21] MEDS: ESCITALOPRAM 10 MG TAB PO SCH (09:02)
[2021-04-21] MEDS: oxyCODONE /ACETAMINOPHEN 5-325MG TAB PO SCH ×2 (09:02→21:04)
[2021-04-21] MEDS: cephALEXin 500 MG CAP PO SCH ×3 (09:02→21:05)
[2021-04-21] MEDS: traZODone 50 MG TAB PO SCH (21:05)
[2021-04-21] MEDS: MELATONIN 5 MG TAB PO PRN (21:06)
[2021-04-22] MEDS: LEVOTHYROXINE 25 MCG TAB PO SCH (05:42)
[2021-04-22] MEDS: LEVOTHYROXINE 112 MCG TAB PO SCH (05:42)
--- NOTE | 2021-04-22 07:47 | Progress Note ---
Subjective Date of service: 04/22/21 Subjective Comment: 04/19/2021: The patient was seen resting in bed, she reports doing well. The patient is talkative. When asked about mood she states " fine , I'm as clear as a red bird." She complained of left leg pain. Patient talks about her home reconstruction. She denies depression stating " I reconciled with my daughter and I am not depressed anymore." The patient reports sleep as fair and appetite as good. She denies any current suicidal/homicidal ideation and denies bernard lucinations. per nurse, the patient had a quiet night. No changes made today. 04/20/2021: The patient was seen sitting in bed, she reports mood as " fine." The patient is focused on discharge, she states she has a doctor appointment on 04/23- for her injections. The patient is calm. The patient reports sleep and appetite as good. She denies any current suicidal/homicidal ideation and denies hallucinations. Per nurse,"She is hyperverbal and constantly requesting things of staff. Her mood presents as labile. She denies si/hi/ah/vh. Her appetite is good. She is medication compliant." No changes made today. 04/21/2021: The patient was seen resting in bed, she reports doing well. The patient is focused on discharge. She reports sleep as fair and appetite as good. She denies any current suicidal/homicidal ideation and denies hallucinations. Per nurse, the patient had about four hours of sleep last night. Change Zyprexa 10 mg po QHS. 04/22/2021: The patient reports mood as fine. She reports sleep as fair and appetite as good. The patient denies any suicidal/homicidal and denies hallucinations. Per nurse, the patient is medication compliant and slept 6 hours. Increased Trazodone to 100mg po QHS. REVIEW OF SYSTEMS Constitutional: Negative for weight loss ENT: Negative for stridor Respiratory: Negative for cough or hemoptysis All other systems reviewed and are negative MENTAL STATUS EXAMINATION General Appearance and Behavior: Age appropriate, good hygiene, wearing appropriate clothes, cooperative, polite Cooperation: Participating/engaged Psychomotor Behavior: normal Mood: "fine" Affect and affective range: congruent with stated mood Thought Process: goal directed Thought Content: Not suicidal Speech: Normal volume,rate normal Suicidal Ideation: Denies Homicidal Ideation: Denies Hallucinations: Denies Delusions: None elicited Impulse Control: Questionable Insight and Judgment: limited insight and judgment, Memory: normal Attention: Normal Orientation: Alert, oriented Assessment and Plan (1) Bipolar Martha Current Visit: Yes Status: Acute Treatment Plan Treatment Plan Patient admitted for inpatient psychiatric evaluation, medication adjustment and close monitoring The patient's behavior, mood, sleep and appetite will be closely monitored. Patient enrolled in individual and group therapeutic sessions and encouraged to attend. Patient provided with a safe and structured environment. Patient's physical health needs will be addressed by the Hospitalist. Hospitalist Consulted Labs including CBC, CMP, Lipid profile and Hemoglobin A1C levels ordered for baseline reference Social Assessment will be completed and the Healthcare Economics Consultant will work with patient and family to ensure a suitable and safe disposition Medication adjustment will be made as clinically indicated Continue home medications Continue Zyprexa 10mg po QHS Start Trazodone 100 mg po QHS Usual Wellness Sikh/Preservation: - Start Trazodone 50 mg po QHS & 50 mg po QHS PRN between 10 PM & 2 AM for insomnia - Start Melatonin 5 mg po QHS to promote circadian rhythm The patient agreed on the treatment plan, understood the risk, benefit, alternative treatment, potential consequence of no treatment, and gave informed consent. Estimated days: 4 Post hospital care: primary care provider, psychiatric provider Case staffed with Dr. Mckeon Legal Status: Voluntary Reaction to Hospitalization: Accepting Medications and Allergies Medications and Allergies Allergies Allergy/AdvReac Type Severity Reaction Status Date / Time cefuroxime Allergy Unknown Verified 04/17/21 17:24 Sulfa (Sulfonamide Allergy Itching Verified 04/18/21 18:49 Antibiotics) Home Medications Medication Instructions Recorded Confirmed Last Taken Type Escitalopram Oxalate [Lexapro] 20 mg PO DAILY 04/17/21 04/17/21 Unknown History Furosemide [Lasix] 20 mg PO QDAY 04/17/21 04/17/21 Unknown History LORazepam [Ativan] 1 mg PO BID PRN 04/17/21 04/17/21 Unknown History Levothyroxine Sodium [Synthroid] 137 mcg PO DAILY 04/17/21 04/17/21 Unknown History OLANzapine ZYDIS [ZyPREXA Zydis] 5 mg SL DAILY 04/17/21 04/17/21 Unknown History Oxymorphone HCl [Oxymorphone HCl 10 mg PO 4XD PRN MDD 4 X DAILY 04/17/21 04/17/21 Unknown History ER] cephALEXin [Keflex] 500 mg PO TID 04/17/21 04/17/21 Unknown History Active Meds: Active Medications Cephalexin (Cephalexin 500 Mg Cap) 500 mg PO TID [facility]; Protocol Stop: 04/23/21 20:01 Last Admin: 04/21/21 21:05 Dose: 500 mg Documented by: Divalproex Sodium (Divalproex Dr 250 Mg Tab) 250 mg PO BID [facility] Last Admin: 04/21/21 21:05 Dose: 250 mg Documented by: Escitalopram Oxalate (Escitalopram 10 Mg Tab) 20 mg PO DAILY [facility] Last Admin: 04/21/21 09:02 Dose: 20 mg Documented by: Furosemide (Furosemide 20 Mg Tab) 20 mg PO QDAY [facility] Last Admin: 04/21/21 09:02 Dose: 20 mg Documented by: Levothyroxine Sodium (Levothyroxine 112 Mcg Tab) 112 mcg PO DAILY@0600 [facility] Last Admin: 04/22/21 05:42 Dose: 112 mcg Documented by: Levothyroxine Sodium (Levothyroxine 25 Mcg Tab) 25 mcg PO DAILY@0600 [facility] Last Admin: 04/22/21 05:42 Dose: 25 mcg Documented by: Lorazepam (Lorazepam 1 Mg Tab) 1 mg PO BID PRN PRN Reason: Agitation Last Admin: 04/21/21 23:41 Dose: 1 mg Documented by: Melatonin (Melatonin 5 Mg Tab) 5 mg PO QHS PRN PRN Reason: Sleep Last Admin: 04/21/21 21:06 Dose: 5 mg Documented by: Olanzapine (Olanzapine 10 Mg Tab) 10 mg PO QHS [facility] Last Admin: 04/21/21 21:06 Dose: 10 mg Documented by: Oxycodone/Acetaminophen (Oxycodone /Acetaminophen 5-325mg Tab) 1 tab PO BID [facility] Last Admin: 04/21/21 21:04 Dose: 1 tab Documented by: Trazodone HCl (Trazodone 50 Mg Tab) 50 mg PO QHS [facility] Last Admin: 04/21/21 21:05 Dose: 50 mg Documented by: Results - Results Labs/Vitals: Laboratory Last Values WBC 6.1 K/mm3 (4.5-11.0) 04/18/21 11:05 RBC 3.12 M/mm3 (3.65-5.03) L 04/18/21 11:05 Hgb 11.5 gm/dl (10.1-14.3) 04/18/21 11:05 Hct 33.6 % (30.3-42.9) 04/18/21 11:05 MCV 108 fl (79-97) H 04/18/21 11:05 MCH 37 pg (28-32) H 04/18/21 11:05 MCHC 34 % (30-34) 04/18/21 11:05 RDW 15.6 % (13.2-15.2) H 04/18/21 11:05 Plt Count 128 K/mm3 (140-440) L 04/18/21 11:05 Lymph % (Auto) 34.3 % (13.4-35.0) 04/18/21 11:05 [place] % (Auto) 7.9 % (0.0-7.3) H 04/18/21 11:05 Eos % (Auto) 0.3 % (0.0-4.3) 04/18/21 11:05 Baso % (Auto) 0.2 % (0.0-1.8) 04/18/21 11:05 Lymph # (Auto) 2.1 K/mm3 (1.2-5.4) 04/18/21 11:05 [place] # (Auto) 0.5 K/mm3 (0.0-0.8) 04/18/21 11:05 Eos # (Auto) 0.0 K/mm3 (0.0-0.4) 04/18/21 11:05 Baso # (Auto) 0.0 K/mm3 (0.0-0.1) 04/18/21 11:05 Seg Neutrophils % 57.3 % (40.0-70.0) 04/18/21 11:05 Seg Neutrophils # 3.5 K/mm3 (1.8-7.7) 04/18/21 11:05 Sodium 142 mmol/L (137-145) 04/18/21 11:05 Potassium 4.5 mmol/L (3.6-5.0) 04/18/21 11:05 Chloride 105.2 mmol/L (98-107) 04/18/21 11:05 Carbon Dioxide 25 mmol/L (22-30) 04/18/21 11:05 Anion Gap 16 mmol/L 04/18/21 11:05 BUN 13 mg/dL (7-17) 04/18/21 11:05 Creatinine 1.1 mg/dL (0.6-1.2) 04/18/21 11:05 Estimated GFR 49 ml/min 04/18/21 11:05 BUN/Creatinine Ratio 12 % 04/18/21 11:05 Glucose 85 mg/dL (65-100) 04/18/21 11:05 POC Glucose 96 mg/dL (70-105) 04/17/21 16:41 Hemoglobin A1c 5.1 % (4-6) 04/18/21 11:05 Calcium 9.0 mg/dL (8.4-10.2) 04/18/21 11:05 Total Bilirubin 0.50 mg/dL (0.1-1.2) 04/18/21 11:05 AST 38 units/L (5-40) 04/18/21 11:05 ALT 25 units/L (7-56) 04/18/21 11:05 Alkaline Phosphatase 74 units/L (35-129) 04/18/21 11:05 Total Protein 6.7 g/dL (6.3-8.2) 04/18/21 11:05 Albumin 3.2 g/dL (3.9-5) L 04/18/21 11:05 Albumin/Globulin Ratio 0.9 % 04/18/21 11:05 Triglycerides 141 mg/dL (2-149) 04/18/21 11:05 Cholesterol 132 mg/dL (50-199) 04/18/21 11:05 LDL Cholesterol Direct 68 mg/dL (50-130) 04/18/21 11:05 HDL Cholesterol 43 mg/dL (40-59) 04/18/21 11:05 Cholesterol/HDL Ratio 3.06 % 04/18/21 11:05 TSH 19.950 mlU/mL (0.270-4.200) H 04/18/21 11:05 Last Vital Signs Temp 99.0 F 04/21/21 22:42 Pulse 71 04/21/21 22:42 Resp 16 04/21/21 22:42 BP 125/63 04/21/21 22:42 Pulse Ox 98 04/21/21 22:42
[2021-04-22] MEDS: oxyCODONE /ACETAMINOPHEN 5-325MG TAB PO SCH ×2 (09:44→21:13)
[2021-04-22] MEDS: cephALEXin 500 MG CAP PO SCH ×3 (09:44→20:31)
[2021-04-22] MEDS: DIVALPROEX DR 250 MG TAB PO SCH ×2 (09:44→21:13)
[2021-04-22] MEDS: FUROSEMIDE 20 MG TAB PO SCH (09:44)
[2021-04-22] MEDS: ESCITALOPRAM 10 MG TAB PO SCH (09:44)
[2021-04-22] MEDS: MELATONIN 5 MG TAB PO PRN (20:33)
[2021-04-22] MEDS: traZODone 100 MG TAB PO SCH (21:13)
[2021-04-22] MEDS: LORazepam 1 MG TAB PO PRN (23:11)
[2021-04-23] MEDS: LEVOTHYROXINE 25 MCG TAB PO SCH (05:29)
[2021-04-23] MEDS: LEVOTHYROXINE 112 MCG TAB PO SCH (05:29)
--- NOTE | 2021-04-23 07:34 | Progress Note ---
Subjective Date of service: 04/23/21 Subjective Comment: 04/19/2021: The patient was seen resting in bed, she reports doing well. The patient is talkative. When asked about mood she states " fine , I'm as clear as a red bird." She complained of left leg pain. Patient talks about her home reconstruction. She denies depression stating " I reconciled with my daughter and I am not depressed anymore." The patient reports sleep as fair and appetite as good. She denies any current suicidal/homicidal ideation and denies hallucinations. per nurse, the patient had a quiet night. No changes made today. 04/20/2021: The patient was seen sitting in bed, she reports mood as " fine." The patient is focused on discharge, she states she has a doctor appointment on 04/23- for her injections. The patient is calm. The patient reports sleep and appetite as good. She denies any current suicidal/homicidal ideation and denies hallucinations. Per nurse,"She is hyperverbal and constantly requesting things of staff. Her mood presents as labile. She denies si/hi/ah/vh. Her appetite is good. She is medication compliant." No changes made today. 04/21/2021: The patient was seen resting in bed, she reports doing well. The patient is focused on discharge. She reports sleep as fair and appetite as good. She denies any current suicidal/homicidal ideation and denies hallucinations. Per nurse, the patient had about four hours of sleep last night. Change Zyprexa 10 mg po QHS. 04/22/2021: The patient reports mood as fine. She reports sleep as fair and appetite as good. The patient denies any suicidal/homicidal and denies hallucin ations. Per nurse, the patient is medication compliant and slept 6 hours. Increased Trazodone to 100mg po QHS. 04/23/2021: The patient was seen in her room getting ready for breakfast. She reports doing well. She reports sleep and appetite as good. The patient denies any suicidal/homicidal and denies hallucinations. Per nurse, the patient had a quiet night. No changes made today. REVIEW OF SYSTEMS Constitutional: Negative for weight loss ENT: Negative for stridor Respiratory: Negative for cough or hemoptysis All other systems reviewed and are negative MENTAL STATUS EXAMINATION General Appearance and Behavior: Age appropriate, good hygiene, wearing appropriate clothes, cooperative, polite Cooperation: Participating/engaged Psychomotor Behavior: normal Mood: "good" Affect and affective range: congruent with stated mood Thought Process: goal directed Thought Content: Not suicidal Speech: Normal volume,rate normal Suicidal Ideation: Denies Homicidal Ideation: Denies Hallucinations: Denies Delusions: None elicited Impulse Control: Questionable Insight and Judgment: limited insight and judgment, Memory: normal Attention: Normal Orientation: Alert, oriented Assessment and Plan (1) Bipolar Martha Current Visit: Yes Status: Acute Treatment Plan Treatment Plan Patient admitted for inpatient psychiatric evaluation, medication adjustment and close monitoring The patient's behavior, mood, sleep and appetite will be closely monitored. Patient enrolled in individual and group therapeutic sessions and encouraged to attend. Patient provided with a safe and structured environment. Patient's physical health needs will be addressed by the Hospitalist. Hospitalist Consulted Labs including CBC, CMP, Lipid profile and Hemoglobin A1C levels ordered for baseline reference Social Assessment will be completed and the Auctioneer Tobacco will work with patient and family to ensure a suitable and safe disposition Medication adjustment will be made as clinically indicated Continue home medications Continue Zyprexa 10mg po QHS Continue Trazodone 100 mg po QHS Usual Wellness Nondenominational/Preservation: - Start Trazodone 50 mg po QHS & 50 mg po QHS PRN between 10 PM & 2 AM for insomnia - Start Melatonin 5 mg po QHS to promote circadian rhythm The patient agreed on the treatment plan, understood the risk, benefit, alternative treatment, potential consequence of no treatment, and gave informed consent. Estimated days: 4 Post hospital care: primary care provider, psychiatric provider Case staffed with Dr. Mckeon Legal Status: Voluntary Reaction to Hospitalization: Accepting Medications and Allergies Medications and Allergies Allergies Allergy/AdvReac Type Severity Reaction Status Date / Time cefuroxime Allergy Unknown Verified 04/17/21 17:24 Sulfa (Sulfonamide Allergy Itching Verified 04/18/21 18:49 Antibiotics) Home Medications Medication Instructions Recorded Confirmed Last Taken Type Escitalopram Oxalate [Lexapro] 20 mg PO DAILY 04/17/21 04/17/21 Unknown History Furosemide [Lasix] 20 mg PO QDAY 04/17/21 04/17/21 Unknown History LORazepam [Ativan] 1 mg PO BID PRN 04/17/21 04/17/21 Unknown History Levothyroxine Sodium [Synthroid] 137 mcg PO DAILY 04/17/21 04/17/21 Unknown History OLANzapine ZYDIS [ZyPREXA Zydis] 5 mg SL DAILY 04/17/21 04/17/21 Unknown History Oxymorphone HCl [Oxymorphone HCl 10 mg PO 4XD PRN MDD 4 X DAILY 04/17/21 04/17/21 Unknown History ER] cephALEXin [Keflex] 500 mg PO TID 04/17/21 04/17/21 Unknown History Active Meds: Active Medications Cephalexin (Cephalexin 500 Mg Cap) 500 mg PO TID [facility]; Protocol Stop: 04/23/21 20:01 Last Admin: 04/22/21 20:31 Dose: 500 mg Documented by: Divalproex Sodium (Divalproex Dr 250 Mg Tab) 250 mg PO BID [facility] Last Admin: 04/22/21 21:13 Dose: 250 mg Documented by: Escitalopram Oxalate (Escitalopram 10 Mg Tab) 20 mg PO DAILY [facility] Last Admin: 04/22/21 09:44 Dose: 20 mg Documented by: Furosemide (Furosemide 20 Mg Tab) 20 mg PO QDAY [facility] Last Admin: 04/22/21 09:44 Dose: 20 mg Documented by: Levothyroxine Sodium (Levothyroxine 112 Mcg Tab) 112 mcg PO DAILY@0600 [facility] Last Admin: 04/23/21 05:29 Dose: 112 mcg Documented by: Levothyroxine Sodium (Levothyroxine 25 Mcg Tab) 25 mcg PO DAILY@0600 [facility] Last Admin: 04/23/21 05:29 Dose: 25 mcg Documented by: Lorazepam (Lorazepam 1 Mg Tab) 1 mg PO BID PRN PRN Reason: Agitation Last Admin: 04/22/21 23:11 Dose: 1 mg Documented by: Melatonin (Melatonin 5 Mg Tab) 5 mg PO QHS PRN PRN Reason: Sleep Last Admin: 04/22/21 20:33 Dose: 5 mg Documented by: Olanzapine (Olanzapine 10 Mg Tab) 10 mg PO QHS [facility] Last Admin: 04/22/21 21:13 Dose: 10 mg Documented by: Oxycodone/Acetaminophen (Oxycodone /Acetaminophen 5-325mg Tab) 1 tab PO BID [facility] Last Admin: 04/22/21 21:13 Dose: 1 tab Documented by: Trazodone HCl (Trazodone 100 Mg Tab) 100 mg PO QHS [facility] Last Admin: 04/22/21 21:13 Dose: 100 mg Documented by: Results - Results Labs/Vitals: Laboratory Last Values WBC 6.1 K/mm3 (4.5-11.0) 04/18/21 11:05 RBC 3.12 M/mm3 (3.65-5.03) L 04/18/21 11:05 Hgb 11.5 gm/dl (10.1-14.3) 04/18/21 11:05 Hct 33.6 % (30.3-42.9) 04/18/21 11:05 MCV 108 fl (79-97) H 04/18/21 11:05 MCH 37 pg (28-32) H 04/18/21 11:05 MCHC 34 % (30-34) 04/18/21 11:05 RDW 15.6 % (13.2-15.2) H 04/18/21 11:05 Plt Count 128 K/mm3 (140-440) L 04/18/21 11:05 Lymph % (Auto) 34.3 % (13.4-35.0) 04/18/21 11:05 [place] % (Auto) 7.9 % (0.0-7.3) H 04/18/21 11:05 Eos % (Auto) 0.3 % (0.0-4.3) 04/18/21 11:05 Baso % (Auto) 0.2 % (0.0-1.8) 04/18/21 11:05 Lymph # (Auto) 2.1 K/mm3 (1.2-5.4) 04/18/21 11:05 [place] # (Auto) 0.5 K/mm3 (0.0-0.8) 04/18/21 11:05 Eos # (Auto) 0.0 K/mm3 (0.0-0.4) 04/18/21 11:05 Baso # (Auto) 0.0 K/mm3 (0.0-0.1) 04/18/21 11:05 Seg Neutrophils % 57.3 % (40.0-70.0) 04/18/21 11:05 Seg Neutrophils # 3.5 K/mm3 (1.8-7.7) 04/18/21 11:05 Sodium 142 mmol/L (137-145) 04/18/21 11:05 Potassium 4.5 mmol/L (3.6-5.0) 04/18/21 11:05 Chloride 105.2 mmol/L (98-107) 04/18/21 11:05 Carbon Dioxide 25 mmol/L (22-30) 04/18/21 11:05 Anion Gap 16 mmol/L 04/18/21 11:05 BUN 13 mg/dL (7-17) 04/18/21 11:05 Creatinine 1.1 mg/dL (0.6-1.2) 04/18/21 11:05 Estimated GFR 49 ml/min 04/18/21 11:05 BUN/Creatinine Ratio 12 % 04/18/21 11:05 Glucose 85 mg/dL (65-100) 04/18/21 11:05 POC Glucose 96 mg/dL (70-105) 04/17/21 16:41 Hemoglobin A1c 5.1 % (4-6) 04/18/21 11:05 Calcium 9.0 mg/dL (8.4-10.2) 04/18/21 11:05 Total Bilirubin 0.50 mg/dL (0.1-1.2) 04/18/21 11:05 AST 38 units/L (5-40) 04/18/21 11:05 ALT 25 units/L (7-56) 04/18/21 11:05 Alkaline Phosphatase 74 units/L (35-129) 04/18/21 11:05 Total Protein 6.7 g/dL (6.3-8.2) 04/18/21 11:05 Albumin 3.2 g/dL (3.9-5) L 04/18/21 11:05 Albumin/Globulin Ratio 0.9 % 04/18/21 11:05 Triglycerides 141 mg/dL (2-149) 04/18/21 11:05 Cholesterol 132 mg/dL (50-199) 04/18/21 11:05 LDL Cholesterol Direct 68 mg/dL (50-130) 04/18/21 11:05 HDL Cholesterol 43 mg/dL (40-59) 04/18/21 11:05 Cholesterol/HDL Ratio 3.06 % 04/18/21 11:05 TSH 19.950 mlU/mL (0.270-4.200) H 04/18/21 11:05 Last Vital Signs Temp 98.3 F 04/22/21 21:00 Pulse 78 04/22/21 21:00 Resp 18 04/22/21 21:13 BP 107/50 04/22/21 21:00 Pulse Ox 97 04/22/21 21:00
[2021-04-23] MEDS: DIVALPROEX DR 250 MG TAB PO SCH ×2 (09:35→21:13)
[2021-04-23] MEDS: ESCITALOPRAM 10 MG TAB PO SCH (09:35)
[2021-04-23] MEDS: oxyCODONE /ACETAMINOPHEN 5-325MG TAB PO SCH ×2 (09:35→21:12)
[2021-04-23] MEDS: FUROSEMIDE 20 MG TAB PO SCH (09:35)
[2021-04-23] MEDS: cephALEXin 500 MG CAP PO SCH ×3 (09:35→20:57)
[2021-04-23] MEDS: traZODone 100 MG TAB PO SCH (21:13)
[2021-04-24] MEDS: LEVOTHYROXINE 25 MCG TAB PO SCH (06:20)
[2021-04-24] MEDS: LEVOTHYROXINE 112 MCG TAB PO SCH (06:20)
[2021-04-24] MEDS: DIVALPROEX DR 250 MG TAB PO SCH ×2 (10:08→21:11)
[2021-04-24] MEDS: oxyCODONE /ACETAMINOPHEN 5-325MG TAB PO SCH ×2 (10:08→21:11)
[2021-04-24] MEDS: FUROSEMIDE 20 MG TAB PO SCH (10:08)
[2021-04-24] MEDS: ESCITALOPRAM 10 MG TAB PO SCH (10:09)
--- NOTE | 2021-04-24 13:02 | Progress Note ---
Subjective Date of service: 04/24/21 Subjective Comment: 04/19/2021: The patient was seen resting in bed, she reports doing well. The patient is talkative. When asked about mood she states " fine , I'm as clear as a red bird." She complained of left leg pain. Patient talks about her home reconstruction. She denies depression stating " I reconciled with my daughter and I am not depressed anymore." The patient reports sleep as fair and appetite as good. She denies any current suicidal/homicidal ideation and denies bernard lucinations. per nurse, the patient had a quiet night. No changes made today. 04/20/2021: The patient was seen sitting in bed, she reports mood as " fine." The patient is focused on discharge, she states she has a doctor appointment on 04/23- for her injections. The patient is calm. The patient reports sleep and appetite as good. She denies any current suicidal/homicidal ideation and denies hallucinations. Per nurse,"She is hyperverbal and constantly requesting things of staff. Her mood presents as labile. She denies si/hi/ah/vh. Her appetite is good. She is medication compliant." No changes made today. 04/21/2021: The patient was seen resting in bed, she reports doing well. The patient is focused on discharge. She reports sleep as fair and appetite as good. She denies any current suicidal/homicidal ideation and denies hallucinations. Per nurse, the patient had about four hours of sleep last night. Change Zyprexa 10 mg po QHS. 04/22/2021: The patient reports mood as fine. She reports sleep as fair and appetite as good. The patient denies any suicidal/homicidal and denies hallucinations. Per nurse, the patient is medication compliant and slept 6 hours. Increased Trazodone to 100mg po QHS. 04/23/2021: The patient was seen in her room getting ready for breakfast. She reports doing well. She reports sleep and appetite as good. The patient denies any suicidal/homicidal and denies hallucinations. Per nurse, the patient had a quiet night. No changes made today. 04/24/2021: The patient was seen in the activity room socializing with peers. She states mood as "fine" but states she wants to go home. She reports sleep and appetite as good. The patient denies any suicidal/homicidal and denies hallucinations. Per nurse, the patient had a quiet night. No changes made today. The patient is awaiting placement. REVIEW OF SYSTEMS Constitutional: Negative for weight loss ENT: Negative for stridor Respiratory: Negative for cough or hemoptysis All other systems reviewed and are negative MENTAL STATUS EXAMINATION General Appearance and Behavior: Age appropriate, good hygiene, wearing appropriate clothes, cooperative, polite Cooperation: Participating/engaged Psychomotor Behavior: normal Mood: "fine" Affect and affective range: congruent with stated mood Thought Process: goal directed Thought Content: Not suicidal Speech: Normal volume,rate normal Suicidal Ideation: Denies Homicidal Ideation: Denies Hallucinations: Denies Delusions: None elicited Impulse Control: Questionable Insight and Judgment: limited insight and judgment, Memory: normal Attention: Normal Orientation: Alert, oriented Assessment and Plan (1) Bipolar Martha Current Visit: Yes Status: Acute Treatment Plan Treatment Plan Patient admitted for inpatient psychiatric evaluation, medication adjustment and close monitoring The patient's behavior, mood, sleep and appetite will be closely monitored. Patient enrolled in individual and group therapeutic sessions and encouraged to attend. Patient provided with a safe and structured environment. Patient's physical health needs will be addressed by the Hospitalist. Hospitalist Consulted Labs including CBC, CMP, Lipid profile and Hemoglobin A1C levels ordered for baseline reference Social Assessment will be completed and the Diet Tech will work with patient and family to ensure a suitable and safe disposition Medication adjustment will be made as clinically indicated Continue home medications Continue Zyprexa 10mg po QHS Continue Trazodone 100 mg po QHS Usual Wellness Buddhist/Preservation: - Start Trazodone 50 mg po QHS & 50 mg po QHS PRN between 10 PM & 2 AM for insomnia - Start Melatonin 5 mg po QHS to promote circadian rhythm The patient agreed on the treatment plan, understood the risk, benefit, alternative treatment, potential consequence of no treatment, and gave informed consent. Estimated days: 4 Post hospital care: primary care provider, psychiatric provider Case staffed with Dr. Mckeon Legal Status: Voluntary Reaction to Hospitalization: Accepting Medications and Allergies Medications and Allergies Allergies Allergy/AdvReac Type Severity Reaction Status Date / Time cefuroxime Allergy Unknown Verified 04/17/21 17:24 Sulfa (Sulfonamide Allergy Itching Verified 04/18/21 18:49 Antibiotics) Home Medications Medication Instructions Recorded Confirmed Last Taken Type Escitalopram Oxalate [Lexapro] 20 mg PO DAILY 04/17/21 04/17/21 Unknown History Furosemide [Lasix] 20 mg PO QDAY 04/17/21 04/17/21 Unknown History LORazepam [Ativan] 1 mg PO BID PRN 04/17/21 04/17/21 Unknown History Levothyroxine Sodium [Synthroid] 137 mcg PO DAILY 04/17/21 04/17/21 Unknown History OLANzapine ZYDIS [ZyPREXA Zydis] 5 mg SL DAILY 04/17/21 04/17/21 Unknown History Oxymorphone HCl [Oxymorphone HCl 10 mg PO 4XD PRN MDD 4 X DAILY 04/17/21 04/17/21 Unknown History ER] cephALEXin [Keflex] 500 mg PO TID 04/17/21 04/17/21 Unknown History Active Meds: Active Medications Divalproex Sodium (Divalproex Dr 250 Mg Tab) 250 mg PO BID [facility] Last Admin: 04/24/21 10:08 Dose: 250 mg Documented by: Escitalopram Oxalate (Escitalopram 10 Mg Tab) 20 mg PO DAILY [facility] Last Admin: 04/24/21 10:09 Dose: 20 mg Documented by: Furosemide (Furosemide 20 Mg Tab) 20 mg PO QDAY [facility] Last Admin: 04/24/21 10:08 Dose: 20 mg Documented by: Levothyroxine Sodium (Levothyroxine 112 Mcg Tab) 112 mcg PO DAILY@0600 [facility] Last Admin: 04/24/21 06:20 Dose: 112 mcg Documented by: Levothyroxine Sodium (Levothyroxine 25 Mcg Tab) 25 mcg PO DAILY@0600 [facility] Last Admin: 04/24/21 06:20 Dose: 25 mcg Documented by: Lorazepam (Lorazepam 1 Mg Tab) 1 mg PO BID PRN PRN Reason: Agitation Last Admin: 04/22/21 23:11 Dose: 1 mg Documented by: Melatonin (Melatonin 5 Mg Tab) 5 mg PO QHS PRN PRN Reason: Sleep Last Admin: 04/22/21 20:33 Dose: 5 mg Documented by: Olanzapine (Olanzapine 10 Mg Tab) 10 mg PO QHS [facility] Last Admin: 04/23/21 21:13 Dose: 10 mg Documented by: Oxycodone/Acetaminophen (Oxycodone /Acetaminophen 5-325mg Tab) 1 tab PO BID [facility] Last Admin: 04/24/21 10:08 Dose: 1 tab Documented by: Trazodone HCl (Trazodone 100 Mg Tab) 100 mg PO QHS [facility] Last Admin: 04/23/21 21:13 Dose: 100 mg Documented by: Results - Results Labs/Vitals: Laboratory Last Values WBC 6.1 K/mm3 (4.5-11.0) 04/18/21 11:05 RBC 3.12 M/mm3 (3.65-5.03) L 04/18/21 11:05 Hgb 11.5 gm/dl (10.1-14.3) 04/18/21 11:05 Hct 33.6 % (30.3-42.9) 04/18/21 11:05 MCV 108 fl (79-97) H 04/18/21 11:05 MCH 37 pg (28-32) H 04/18/21 11:05 MCHC 34 % (30-34) 04/18/21 11:05 RDW 15.6 % (13.2-15.2) H 04/18/21 11:05 Plt Count 128 K/mm3 (140-440) L 04/18/21 11:05 Lymph % (Auto) 34.3 % (13.4-35.0) 04/18/21 11:05 [place] % (Auto) 7.9 % (0.0-7.3) H 04/18/21 11:05 Eos % (Auto) 0.3 % (0.0-4.3) 04/18/21 11:05 Baso % (Auto) 0.2 % (0.0-1.8) 04/18/21 11:05 Lymph # (Auto) 2.1 K/mm3 (1.2-5.4) 04/18/21 11:05 [place] # (Auto) 0.5 K/mm3 (0.0-0.8) 04/18/21 11:05 Eos # (Auto) 0.0 K/mm3 (0.0-0.4) 04/18/21 11:05 Baso # (Auto) 0.0 K/mm3 (0.0-0.1) 04/18/21 11:05 Seg Neutrophils % 57.3 % (40.0-70.0) 04/18/21 11:05 Seg Neutrophils # 3.5 K/mm3 (1.8-7.7) 04/18/21 11:05 Sodium 142 mmol/L (137-145) 04/18/21 11:05 Potassium 4.5 mmol/L (3.6-5.0) 04/18/21 11:05 Chloride 105.2 mmol/L (98-107) 04/18/21 11:05 Carbon Dioxide 25 mmol/L (22-30) 04/18/21 11:05 Anion Gap 16 mmol/L 04/18/21 11:05 BUN 13 mg/dL (7-17) 04/18/21 11:05 Creatinine 1.1 mg/dL (0.6-1.2) 04/18/21 11:05 Estimated GFR 49 ml/min 04/18/21 11:05 BUN/Creatinine Ratio 12 % 04/18/21 11:05 Glucose 85 mg/dL (65-100) 04/18/21 11:05 POC Glucose 96 mg/dL (70-105) 04/17/21 16:41 Hemoglobin A1c 5.1 % (4-6) 04/18/21 11:05 Calcium 9.0 mg/dL (8.4-10.2) 04/18/21 11:05 Total Bilirubin 0.50 mg/dL (0.1-1.2) 04/18/21 11:05 AST 38 units/L (5-40) 04/18/21 11:05 ALT 25 units/L (7-56) 04/18/21 11:05 Alkaline Phosphatase 74 units/L (35-129) 04/18/21 11:05 Total Protein 6.7 g/dL (6.3-8.2) 04/18/21 11:05 Albumin 3.2 g/dL (3.9-5) L 04/18/21 11:05 Albumin/Globulin Ratio 0.9 % 04/18/21 11:05 Triglycerides 141 mg/dL (2-149) 04/18/21 11:05 Cholesterol 132 mg/dL (50-199) 04/18/21 11:05 LDL Cholesterol Direct 68 mg/dL (50-130) 04/18/21 11:05 HDL Cholesterol 43 mg/dL (40-59) 04/18/21 11:05 Cholesterol/HDL Ratio 3.06 % 04/18/21 11:05 TSH 19.950 mlU/mL (0.270-4.200) H 04/18/21 11:05 Last Vital Signs Temp 98.3 F 04/24/21 07:28 Pulse 83 04/23/21 19:26 Resp 16 04/24/21 07:28 BP 119/48 04/24/21 07:28 Pulse Ox 98 04/23/21 19:26
[2021-04-24] MEDS: LORazepam 1 MG TAB PO PRN (20:56)
[2021-04-24] MEDS: traZODone 100 MG TAB PO SCH (21:11)
[2021-04-25] MEDS: LEVOTHYROXINE 112 MCG TAB PO SCH (05:36)
[2021-04-25] MEDS: LEVOTHYROXINE 25 MCG TAB PO SCH (05:36)
--- NOTE | 2021-04-25 07:59 | Progress Note ---
Subjective Date of service: 04/25/21 Subjective Comment: 04/19/2021: The patient was seen resting in bed, she reports doing well. The patient is talkative. When asked about mood she states " fine , I'm as clear as a red bird." She complained of left leg pain. Patient talks about her home reconstruction. She denies depression stating " I reconciled with my daughter and I am not depressed anymore." The patient reports sleep as fair and appetite as good. She denies any current suicidal/homicidal ideation and denies bernard lucinations. per nurse, the patient had a quiet night. No changes made today. 04/20/2021: The patient was seen sitting in bed, she reports mood as " fine." The patient is focused on discharge, she states she has a doctor appointment on 04/23- for her injections. The patient is calm. The patient reports sleep and appetite as good. She denies any current suicidal/homicidal ideation and denies hallucinations. Per nurse,"She is hyperverbal and constantly requesting things of staff. Her mood presents as labile. She denies si/hi/ah/vh. Her appetite is good. She is medication compliant." No changes made today. 04/21/2021: The patient was seen resting in bed, she reports doing well. The patient is focused on discharge. She reports sleep as fair and appetite as good. She denies any current suicidal/homicidal ideation and denies hallucinations. Per nurse, the patient had about four hours of sleep last night. Change Zyprexa 10 mg po QHS. 04/22/2021: The patient reports mood as fine. She reports sleep as fair and appetite as good. The patient denies any suicidal/homicidal and denies hallucinations. Per nurse, the patient is medication compliant and slept 6 hours. Increased Trazodone to 100mg po QHS. 04/23/2021: The patient was seen in her room getting ready for breakfast. She reports doing well. She reports sleep and appetite as good. The patient denies any suicidal/homicidal and denies hallucinations. Per nurse, the patient had a quiet night. No changes made today. 04/24/2021: The patient was seen in the activity room socializing with peers. She states mood as "fine" but states she wants to go home. She reports sleep and appetite as good. The patient denies any suicidal/homicidal and denies hallucinations. Per nurse, the patient had a quiet night. No changes made today. The patient is awaiting placement. 04/25/2021: The patient was seen in the hallway, she reports doing well. Patient is requesting to be discharged and when she was informed that her discharge will be tomorrow due to placement issues she angry and loud. She denies any current suicidal/homicidal ideation and denies hallucinations. No changes made today. REVIEW OF SYSTEMS Constitutional: Negative for weight loss ENT: Negative for stridor Respiratory: Negative for cough or hemoptysis All other systems reviewed and are negative MENTAL STATUS EXAMINATION General Appearance and Behavior: Age appropriate, good hygiene, wearing appropriate clothes, cooperative, polite Cooperation: Participating/engaged Psychomotor Behavior: normal Mood: Angry Affect and affective range: congruent with stated mood Thought Process: goal directed Thought Content: Not suicidal Speech: Normal volume,rate normal Suicidal Ideation: Denies Homicidal Ideation: Denies Hallucinations: Denies Delusions: None elicited Impulse Control: Questionable Insight and Judgment: limited insight and judgment, Memory: normal Attention: Normal Orientation: Alert, oriented Assessment and Plan (1) Bipolar Martha Current Visit: Yes Status: Acute Treatment Plan Treatment Plan Patient admitted for inpatient psychiatric evaluation, medication adjustment and close monitoring The patient's behavior, mood, sleep and appetite will be closely monitored. Patient enrolled in individual and group therapeutic sessions and encouraged to attend. Patient provided with a safe and structured environment. Patient's physical health needs will be addressed by the Hospitalist. Hospitalist Consulted Labs including CBC, CMP, Lipid profile and Hemoglobin A1C levels ordered for baseline reference Social Assessment will be completed and the Cooking Appliance Repair Technician will work with patient and family to ensure a suitable and safe disposition Medication adjustment will be made as clinically indicated Continue home medications Continue Zyprexa 10mg po QHS Continue Trazodone 100 mg po QHS [employer]: - Start Trazodone 50 mg po QHS & 50 mg po QHS PRN between 10 PM & 2 AM for insomnia - Start Melatonin 5 mg po QHS to promote circadian rhythm The patient agreed on the treatment plan, understood the risk, benefit, alternative treatment, potential consequence of no treatment, and gave informed consent. Estimated days: 4 Post hospital care: primary care provider, psychiatric provider Case staffed with Dr. Mckeon Legal Status: Voluntary Reaction to Hospitalization: Accepting Medications and Allergies Medications and Allergies Allergies Allergy/AdvReac Type Severity Reaction Status Date / Time cefuroxime Allergy Unknown Verified 04/17/21 17:24 Sulfa (Sulfonamide Allergy Itching Verified 04/18/21 18:49 Antibiotics) Home Medications Medication Instructions Recorded Confirmed Last Taken Type Escitalopram Oxalate [Lexapro] 20 mg PO DAILY 04/17/21 04/17/21 Unknown History Furosemide [Lasix] 20 mg PO QDAY 04/17/21 04/17/21 Unknown History LORazepam [Ativan] 1 mg PO BID PRN 04/17/21 04/17/21 Unknown History Levothyroxine Sodium [Synthroid] 137 mcg PO DAILY 04/17/21 04/17/21 Unknown History OLANzapine ZYDIS [ZyPREXA Zydis] 5 mg SL DAILY 04/17/21 04/17/21 Unknown History Oxymorphone HCl [Oxymorphone HCl 10 mg PO 4XD PRN MDD 4 X DAILY 04/17/21 04/17/21 Unknown History ER] cephALEXin [Keflex] 500 mg PO TID 04/17/21 04/17/21 Unknown History Active Meds: Active Medications Divalproex Sodium (Divalproex Dr 250 Mg Tab) 250 mg PO BID [facility] Last Admin: 04/24/21 21:11 Dose: 250 mg Documented by: Escitalopram Oxalate (Escitalopram 10 Mg Tab) 20 mg PO DAILY [facility] Last Admin: 04/24/21 10:09 Dose: 20 mg Documented by: Furosemide (Furosemide 20 Mg Tab) 20 mg PO QDAY [facility] Last Admin: 04/24/21 10:08 Dose: 20 mg Documented by: Levothyroxine Sodium (Levothyroxine 112 Mcg Tab) 112 mcg PO DAILY@0600 [facility] Last Admin: 04/25/21 05:36 Dose: 112 mcg Documented by: Levothyroxine Sodium (Levothyroxine 25 Mcg Tab) 25 mcg PO DAILY@0600 [facility] Last Admin: 04/25/21 05:36 Dose: 25 mcg Documented by: Lorazepam (Lorazepam 1 Mg Tab) 1 mg PO BID PRN PRN Reason: Agitation Last Admin: 04/24/21 20:56 Dose: 1 mg Documented by: Melatonin (Melatonin 5 Mg Tab) 5 mg PO QHS PRN PRN Reason: Sleep Last Admin: 04/22/21 20:33 Dose: 5 mg Documented by: Olanzapine (Olanzapine 10 Mg Tab) 10 mg PO QHS [facility] Last Admin: 04/24/21 21:11 Dose: 10 mg Documented by: Oxycodone/Acetaminophen (Oxycodone /Acetaminophen 5-325mg Tab) 1 tab PO BID [facility] Last Admin: 04/24/21 21:11 Dose: 1 tab Documented by: Trazodone HCl (Trazodone 100 Mg Tab) 100 mg PO QHS [facility] Last Admin: 04/24/21 21:11 Dose: 100 mg Documented by: Results - Results Labs/Vitals: Laboratory Last Values WBC 6.1 K/mm3 (4.5-11.0) 04/18/21 11:05 RBC 3.12 M/mm3 (3.65-5.03) L 04/18/21 11:05 Hgb 11.5 gm/dl (10.1-14.3) 04/18/21 11:05 Hct 33.6 % (30.3-42.9) 04/18/21 11:05 MCV 108 fl (79-97) H 04/18/21 11:05 MCH 37 pg (28-32) H 04/18/21 11:05 MCHC 34 % (30-34) 04/18/21 11:05 RDW 15.6 % (13.2-15.2) H 04/18/21 11:05 Plt Count 128 K/mm3 (140-440) L 04/18/21 11:05 Lymph % (Auto) 34.3 % (13.4-35.0) 04/18/21 11:05 [place] % (Auto) 7.9 % (0.0-7.3) H 04/18/21 11:05 Eos % (Auto) 0.3 % (0.0-4.3) 04/18/21 11:05 Baso % (Auto) 0.2 % (0.0-1.8) 04/18/21 11:05 Lymph # (Auto) 2.1 K/mm3 (1.2-5.4) 04/18/21 11:05 [place] # (Auto) 0.5 K/mm3 (0.0-0.8) 04/18/21 11:05 Eos # (Auto) 0.0 K/mm3 (0.0-0.4) 04/18/21 11:05 Baso # (Auto) 0.0 K/mm3 (0.0-0.1) 04/18/21 11:05 Seg Neutrophils % 57.3 % (40.0-70.0) 04/18/21 11:05 Seg Neutrophils # 3.5 K/mm3 (1.8-7.7) 04/18/21 11:05 Sodium 142 mmol/L (137-145) 04/18/21 11:05 Potassium 4.5 mmol/L (3.6-5.0) 04/18/21 11:05 Chloride 105.2 mmol/L (98-107) 04/18/21 11:05 Carbon Dioxide 25 mmol/L (22-30) 04/18/21 11:05 Anion Gap 16 mmol/L 04/18/21 11:05 BUN 13 mg/dL (7-17) 04/18/21 11:05 Creatinine 1.1 mg/dL (0.6-1.2) 04/18/21 11:05 Estimated GFR 49 ml/min 04/18/21 11:05 BUN/Creatinine Ratio 12 % 04/18/21 11:05 Glucose 85 mg/dL (65-100) 04/18/21 11:05 POC Glucose 96 mg/dL (70-105) 04/17/21 16:41 Hemoglobin A1c 5.1 % (4-6) 04/18/21 11:05 Calcium 9.0 mg/dL (8.4-10.2) 04/18/21 11:05 Total Bilirubin 0.50 mg/dL (0.1-1.2) 04/18/21 11:05 AST 38 units/L (5-40) 04/18/21 11:05 ALT 25 units/L (7-56) 04/18/21 11:05 Alkaline Phosphatase 74 units/L (35-129) 04/18/21 11:05 Total Protein 6.7 g/dL (6.3-8.2) 04/18/21 11:05 Albumin 3.2 g/dL (3.9-5) L 04/18/21 11:05 Albumin/Globulin Ratio 0.9 % 04/18/21 11:05 Triglycerides 141 mg/dL (2-149) 04/18/21 11:05 Cholesterol 132 mg/dL (50-199) 04/18/21 11:05 LDL Cholesterol Direct 68 mg/dL (50-130) 04/18/21 11:05 HDL Cholesterol 43 mg/dL (40-59) 04/18/21 11:05 Cholesterol/HDL Ratio 3.06 % 04/18/21 11:05 TSH 19.950 mlU/mL (0.270-4.200) H 04/18/21 11:05 Last Vital Signs Temp 98.8 F 04/24/21 21:00 Pulse 78 04/24/21 21:00 Resp 18 04/24/21 21:11 BP 103/60 04/24/21 21:00 Pulse Ox 96 04/24/21 21:00
[2021-04-25] MEDS: FUROSEMIDE 20 MG TAB PO SCH (09:10)
[2021-04-25] MEDS: oxyCODONE /ACETAMINOPHEN 5-325MG TAB PO SCH ×2 (09:10→21:20)
[2021-04-25] MEDS: DIVALPROEX DR 250 MG TAB PO SCH ×2 (09:10→21:20)
[2021-04-25] MEDS: ESCITALOPRAM 10 MG TAB PO SCH (09:10)
[2021-04-25] MEDS: traZODone 100 MG TAB PO SCH (21:20)
[2021-04-25] MEDS: LORazepam 1 MG TAB PO PRN (21:21)
[2021-04-25] MEDS: MELATONIN 5 MG TAB PO PRN (21:21)
[2021-04-26] MEDS: LEVOTHYROXINE 112 MCG TAB PO SCH (06:44)
[2021-04-26] MEDS: LEVOTHYROXINE 25 MCG TAB PO SCH (06:45)
--- NOTE | 2021-04-26 09:20 | Discharge Summary ---
Providers - Providers Date of Admission: 04/17/21 15:55 Date of discharge: 04/26/21 Attending physician: SAÚL VILLALOBOS MD 04/16/21 16:41 Consult to Physician [CONS] Routine Comment: Consulting Provider: JUS MOE Physician Instructions: Reason For Exam: manage medical conditions Primary care physician: PHYSICAL THERAPIST ASSISTANT Hospitalization Reason for admission: matti Admitting Diagnosis: F31.2 - BIPOLAR DISORD, CRNT EPISODE MANIC SEVERE W PSYCH FEATURES Condition: Stable Hospital course: The patient was provided inpatient psychiatric treatment with safe and supportive care, medication adjustment, adverse effect monitoring, medical evaluations, medical treatments, assessment and psycho-education. The patient's mood, cognition, behavior, moral support are improved and stabilized. St the time of discharge, the patient had no endangering behavior and no debilitating adverse effects. The patient agreed on potential consequences of no treatment and gave informed consent. 04/19/2021: The patient was seen resting in bed, she reports doing well. The patient is talkative. When asked about mood she states " fine , I'm as clear as a red bird." She complained of left leg pain. Patient talks about her home reconstruction. She denies depression stating " I reconciled with my daughter and I am not depressed anymore." The patient reports sleep as fair and appetite as good. She denies any current suicidal/homicidal ideation and denies hallucinations. per nurse, the patient had a quiet night. No changes made today. 04/20/2021: The patient was seen sitting in bed, she reports mood as " fine." The patient is focused on discharge, she states she has a doctor appointment on 04/23- for her injections. The patient is calm. The patient reports sleep and appetite as good. She denies any current suicidal/homicidal ideation and denies hallucinations. Per nurse,"She is hyperverbal and constantly requesting things of staff. Her mood presents as labile. She denies si/hi/ah/vh. Her appetite is good. She is medication compliant." No changes made today. 04/21/2021: The patient was seen resting in bed, she reports doing well. The patient is focused on discharge. She reports sleep as fair and appetite as good. She denies any current suicidal/homicidal ideation and denies hallucinations. Per nurse, the patient had about four hours of sleep last night. Change Zyprexa 10 mg po QHS. 04/22/2021: The patient reports mood as fine. She reports sleep as fair and appetite as good. The patient denies any suicidal/homicidal and denies hallucinations. Per nurse, the patient is medication compliant and slept 6 hours. Increased Trazodone to 100mg po QHS. 04/23/2021: The patient was seen in her room getting ready for breakfast. She reports doing well. She reports sleep and appetite as good. The patient denies any suicidal/homicidal and denies hallucinations. Per nurse, the patient had a quiet night. No changes made today. 04/24/2021: The patient was seen in the activity room socializing with peers. She states mood as "fine" but states she wants to go home. She reports sleep and appetite as good. The patient denies any suicidal/homicidal and denies hallucinations. Per nurse, the patient had a quiet night. No changes made today. The patient is awaiting placement. 04/25/2021: The patient was seen in the hallway, she reports doing well. Patient is requesting to be discharged and when she was informed that her discharge will be tomorrow due to placement issues she angry and loud. She denies any current suicidal/homicidal ideation and denies hallucinations. No changes made today. Disposition: 01 HOME / SELF CARE / HOMELESS Time spent for discharge: 35 Allergies/Adverse Reactions: Allergies cefuroxime Allergy (Verified 04/17/21 17:24) Unknown Sulfa (Sulfonamide Antibiotics) Allergy (Verified 04/18/21 18:49) Itching Vital Signs: Last Vital Signs Temp 99.0 F 04/25/21 20:01 Pulse 86 04/25/21 20:01 Resp 14 04/25/21 21:20 BP 107/61 04/25/21 20:01 Pulse Ox 98 04/25/21 20:01 Last Lab: Laboratory Last Values WBC 6.1 K/mm3 (4.5-11.0) 04/18/21 11:05 RBC 3.12 M/mm3 (3.65-5.03) L 04/18/21 11:05 Hgb 11.5 gm/dl (10.1-14.3) 04/18/21 11:05 Hct 33.6 % (30.3-42.9) 04/18/21 11:05 MCV 108 fl (79-97) H 04/18/21 11:05 MCH 37 pg (28-32) H 04/18/21 11:05 MCHC 34 % (30-34) 04/18/21 11:05 RDW 15.6 % (13.2-15.2) H 04/18/21 11:05 Plt Count 128 K/mm3 (140-440) L 04/18/21 11:05 Lymph % (Auto) 34.3 % (13.4-35.0) 04/18/21 11:05 [place] % (Auto) 7.9 % (0.0-7.3) H 04/18/21 11:05 Eos % (Auto) 0.3 % (0.0-4.3) 04/18/21 11:05 Baso % (Auto) 0.2 % (0.0-1.8) 04/18/21 11:05 Lymph # (Auto) 2.1 K/mm3 (1.2-5.4) 04/18/21 11:05 [place] # (Auto) 0.5 K/mm3 (0.0-0.8) 04/18/21 11:05 Eos # (Auto) 0.0 K/mm3 (0.0-0.4) 04/18/21 11:05 Baso # (Auto) 0.0 K/mm3 (0.0-0.1) 04/18/21 11:05 Seg Neutrophils % 57.3 % (40.0-70.0) 04/18/21 11:05 Seg Neutrophils # 3.5 K/mm3 (1.8-7.7) 04/18/21 11:05 Sodium 142 mmol/L (137-145) 04/18/21 11:05 Potassium 4.5 mmol/L (3.6-5.0) 04/18/21 11:05 Chloride 105.2 mmol/L (98-107) 04/18/21 11:05 Carbon Dioxide 25 mmol/L (22-30) 04/18/21 11:05 Anion Gap 16 mmol/L 04/18/21 11:05 BUN 13 mg/dL (7-17) 04/18/21 11:05 Creatinine 1.1 mg/dL (0.6-1.2) 04/18/21 11:05 Estimated GFR 49 ml/min 04/18/21 11:05 BUN/Creatinine Ratio 12 % 04/18/21 11:05 Glucose 85 mg/dL (65-100) 04/18/21 11:05 POC Glucose 96 mg/dL (70-105) 04/17/21 16:41 Hemoglobin A1c 5.1 % (4-6) 04/18/21 11:05 Calcium 9.0 mg/dL (8.4-10.2) 04/18/21 11:05 Total Bilirubin 0.50 mg/dL (0.1-1.2) 04/18/21 11:05 AST 38 units/L (5-40) 04/18/21 11:05 ALT 25 units/L (7-56) 04/18/21 11:05 Alkaline Phosphatase 74 units/L (35-129) 04/18/21 11:05 Total Protein 6.7 g/dL (6.3-8.2) 04/18/21 11:05 Albumin 3.2 g/dL (3.9-5) L 04/18/21 11:05 Albumin/Globulin Ratio 0.9 % 04/18/21 11:05 Triglycerides 141 mg/dL (2-149) 04/18/21 11:05 Cholesterol 132 mg/dL (50-199) 04/18/21 11:05 LDL Cholesterol Direct 68 mg/dL (50-130) 04/18/21 11:05 HDL Cholesterol 43 mg/dL (40-59) 04/18/21 11:05 Cholesterol/HDL Ratio 3.06 % 04/18/21 11:05 TSH 19.950 mlU/mL (0.270-4.200) H 04/18/21 11:05 Core Measure Documentation - Palliative Care Palliative Care/ Comfort Measures: Not Applicable - Core Measures Any of the following diagnoses?: none Exam - Constitutional Vitals: Temp Pulse Resp BP Pulse Ox 99.0 F 86 14 107/61 98 04/25/21 20:01 04/25/21 20:01 04/25/21 21:20 04/25/21 20:01 04/25/21 20:01 General appearance: Present: no acute distress - EENT Eyes: Present: PERRL, EOM intact ENT: hearing intact, clear oral mucosa - Neck Neck: Present: supple, normal ROM - Respiratory Respiratory effort: normal Plan Activity: advance as tolerated Weight Bearing Status: Weight Bear as Tolerated Care Plan Goals: Maintain good and stable mental health Plan of Treatment: The patient should be compliant with medications, not to use drugs, and not to drink alcohol. The patient understands that if suicidal ideas, homicidal ideas or any endangering feeling arise, the patient should seek assistance including, but not limited to crisis hotline, and emergency room. Assessment: Bipolar Follow up with: PRIMARY CARE,MD [Primary Care Provider] - 7 Days Prescriptions: traZODone [Desyrel] 100 mg PO QHS #30 tablet Melatonin [Melatonin 5MG TAB] 5 mg PO QHS PRN #30 tablet PRN Reason: Sleep OLANzapine [Zyprexa] 10 mg PO QHS #[address] [Depakote Dr] 250 mg PO BID #60 tablet Escitalopram Oxalate [Lexapro] 20 mg PO DAILY #30
[2021-04-26 09:32] VITALS: BP 114/61
[2021-04-26] MEDS: DIVALPROEX DR 250 MG TAB PO SCH (09:32)
[2021-04-26] MEDS: ESCITALOPRAM 10 MG TAB PO SCH (09:32)
[2021-04-26] MEDS: oxyCODONE /ACETAMINOPHEN 5-325MG TAB PO SCH (09:32)
[2021-04-26] MEDS: FUROSEMIDE 20 MG TAB PO SCH (09:32)
== END 2021-04-26 20:45 | disposition home or self-care (01) | DRG 885 ==
LOC: 3A 15:19 → UNDOADMIN 15:19 → 5A 04-17 15:55 → EDBD 04-17 15:55
PROVIDERS: ADMIT Psychiatry & Neurology Psychiatry; ATTEND Psychiatry & Neurology Psychiatry
DX: F31.9 Bipolar disorder, unspecified (principal); K21.9 Gastro-esophageal reflux disease without esophagitis; I67.2 Cerebral atherosclerosis; G89.4 Chronic pain syndrome; F01.50 Vascular dementia, unspecified severity, without behavioral disturbance, psychotic disturbance, mood disturbance, and anxiety; M19.90 Unspecified osteoarthritis, unspecified site; Z88.8 Allergy status to other drugs, medicaments and biological substances; Z88.2 Allergy status to sulfonamides; Z79.899 Other long term (current) drug therapy; Z79.891 Long term (current) use of opiate analgesic; Z79.01 Long term (current) use of anticoagulants
CPT/HCPCS: 36415; 80053; 80061; 82962; 83036; 84443; 85025; G0378